=== PATIENT | female | born 1950 | race Caucasian/White ===

== ENCOUNTER → 2016-06-25 | Outpatient (CLI) | payer MEDICARE, OTHER ==
[~2016-06-25] MED LIST: ANGELIQ PO; ASPIRIN 81M81 MG/TA2 PO; CALCIUM WITH D31 CTB PO; CARDI-OMEGA1000 MG PO; HYZAAR 25 MG-101 TAB PO; LIPITOR20 MG PO; MULTIPLE VITAMI1 CAP PO; PRILOTC PO
== END ==
LOC: MC.RAD 13:40
DX: Z12.31 Encounter for screening mammogram for malignant neoplasm of breast (principal); N63 Unspecified lump in breast

== ENCOUNTER → 2017-06-28 | Outpatient (CLI) | payer MEDICARE, OTHER | LOC: MC.RAD 09:50 | DX: Z12.31 Encounter for screening mammogram for malignant neoplasm of breast (principal) ==

== ENCOUNTER → 2018-02-24 | Outpatient (CLI) | payer MEDICARE, OTHER | LOC: MC.RAD 09:45 | DX: N63.11 Unspecified lump in the right breast, upper outer quadrant (principal) | CPT/HCPCS: G0279 ==

== ENCOUNTER → 2018-02-28 | Outpatient (CLI) | payer MEDICARE, OTHER | LOC: MC.RAD 10:00 | DX: N63.10 Unspecified lump in the right breast, unspecified quadrant (principal); Z98.82 Breast implant status ==

== ENCOUNTER → 2018-03-21 | Outpatient (CLI) | payer MEDICARE, OTHER ==
[~2018-03-21] MED LIST changes: +AMITRIPTYLINE H50 M1 PO; +HCTZ 25MG TAB25 MG PO; +LIPITOR 40MG TA40 MG PO; +NATURAL IRON65 MG PO; +NORCO 325 MG-51 TAB PO; +NORCO 325 MG-7.1 TAB PO; +OMEGA-3 1000 MG1 CAP PO; +PROTONIX 40MG T40 MG PO; +REGLAN 10MG10 MG/TAB PO; +TESSALON P100 MG/CAP PO; +TOPROL XL 50MG50 MG PO
== END ==
LOC: COL.RAD 09:03
DX: C50.611 Malignant neoplasm of axillary tail of right female breast (principal)
CPT/HCPCS: A9541

== ENCOUNTER 2018-03-22 08:12 | Day surgery (SDC) | payer MEDICARE, OTHER ==
[~2018-03-22] VITALS: Ht 167.6 cm; Wt 109.3 kg
[~2018-03-22 08:12] MED LIST changes: -AMITRIPTYLINE H50 M1 PO; -HCTZ 25MG TAB25 MG PO; -LIPITOR 40MG TA40 MG PO; -NATURAL IRON65 MG PO; -NORCO 325 MG-51 TAB PO; -NORCO 325 MG-7.1 TAB PO; -OMEGA-3 1000 MG1 CAP PO; -PROTONIX 40MG T40 MG PO; -REGLAN 10MG10 MG/TAB PO; -TESSALON P100 MG/CAP PO; -TOPROL XL 50MG50 MG PO
[2018-03-22] MEDS ORDERED: LIPITOR 40MG TA40 MG PO (09:53)
[2018-03-22] MEDS ORDERED: OMEGA-3 1000 MG1 CAP PO (09:54)
[2018-03-22] MEDS ORDERED: HCTZ 25MG TAB25 MG PO (09:55)
[2018-03-22] MEDS ORDERED: AMITRIPTYLINE H50 M1 PO (09:56)
[2018-03-22] MEDS ORDERED: PROTONIX 40MG T40 MG PO (09:56)
[2018-03-22] MEDS ORDERED: REGLAN 10MG10 MG/TAB PO (09:57)
[2018-03-22] MEDS ORDERED: NATURAL IRON65 MG PO (09:58)
[2018-03-22] MEDS ORDERED: TESSALON P100 MG/CAP PO (09:58)
[2018-03-22] MEDS ORDERED: TOPROL XL 50MG50 MG PO (09:59)
[2018-03-22 10:01] VITALS: BP 150/83; PULSE 86; TEMP 97.9
[2018-03-22] MEDS ORDERED: NORCO 325 MG-7.1 TAB PO (14:04)
[2018-03-22 14:30] VITALS: BP 138/83; PULSE 77; TEMP 97.3
[2018-03-22 14:45] VITALS: BP 140/68; PULSE 78
[2018-03-22 15:00] VITALS: BP 145/73; PULSE 77
[2018-03-22 15:15] VITALS: BP 139/73; PULSE 78
[2018-03-22 15:45] VITALS: BP 144/79; PULSE 79
== END 2018-03-22 16:05 | disposition home or self-care (01) ==
LOC: SDCO 08:12
DX: C50.911 Malignant neoplasm of unspecified site of right female breast (principal); C77.3 Secondary and unspecified malignant neoplasm of axilla and upper limb lymph nodes; Z17.0 Estrogen receptor positive status [ER+]; I10 Essential (primary) hypertension; E78.00 Pure hypercholesterolemia, unspecified; K21.9 Gastro-esophageal reflux disease without esophagitis; E66.09 Other obesity due to excess calories; Z68.37 Body mass index [BMI] 37.0-37.9, adult; Z88.2 Allergy status to sulfonamides; Z87.891 Personal history of nicotine dependence; Z85.828 Personal history of other malignant neoplasm of skin; Z80.3 Family history of malignant neoplasm of breast; Z80.49 Family history of malignant neoplasm of other genital organs; Z80.1 Family history of malignant neoplasm of trachea, bronchus and lung
CPT/HCPCS: A9541; J0690; J1100; J1885; J2250; J2405; J2704; J3010; J7120; Q9968

== ENCOUNTER 2018-05-17 07:33 | Day surgery (SDC) | payer MEDICARE, OTHER ==
[~2018-05-17] VITALS: Ht 167.6 cm; Wt 107.3 kg
[~2018-05-17 07:33] MED LIST changes: +AMITRIPTYLINE H50 M1 PO; +HCTZ 25MG TAB25 MG PO; +LIPITOR 40MG TA40 MG PO; +NATURAL IRON65 MG PO; +NORCO 325 MG-51 TAB PO; +NORCO 325 MG-7.1 TAB PO; +OMEGA-3 1000 MG1 CAP PO; +PROTONIX 40MG T40 MG PO; +REGLAN 10MG10 MG/TAB PO; +TESSALON P100 MG/CAP PO; +TOPROL XL 50MG50 MG PO
[2018-05-17 08:14] VITALS: BP 155/92; PULSE 93; TEMP 97.8
[2018-05-17 10:36] VITALS: BP 133/65; PULSE 75; TEMP 98.5
[2018-05-17 10:50] VITALS: BP 132/77; PULSE 73
[2018-05-17 11:05] VITALS: BP 127/60; PULSE 77
== END 2018-05-17 11:30 | disposition home or self-care (01) ==
LOC: SDCO 07:33
DX: C50.411 Malignant neoplasm of upper-outer quadrant of right female breast (principal); C77.3 Secondary and unspecified malignant neoplasm of axilla and upper limb lymph nodes; Z87.891 Personal history of nicotine dependence; Z80.3 Family history of malignant neoplasm of breast; Z88.2 Allergy status to sulfonamides; Z79.82 Long term (current) use of aspirin; Z79.899 Other long term (current) drug therapy
CPT/HCPCS: C1788; J0690; J1644; J2250; J2704; J3010; J7120

== ENCOUNTER 2018-11-07 12:53 | Day surgery (SDC) | payer MEDICARE, OTHER ==
[~2018-11-07] VITALS: Ht 167.6 cm; Wt 99.0 kg
[~2018-11-07 12:53] MED LIST changes: +MASON NATURAL1200 MG PO; -MULTIPLE VITAMI1 CAP PO; +MULTIPLE VITAMI1 TA5 PO; -OMEGA-3 1000 MG1 CAP PO
[2018-11-07] MEDS ORDERED: CARAFATE 1GM1 G PO (13:34)
[2018-11-07] MEDS ORDERED: ARIMIDEX1 MG PO (13:36)
[2018-11-07 13:46] VITALS: BP 130/86; PULSE 98; TEMP 97
[2018-11-07 14:50] VITALS: BP 118/74; PULSE 83; TEMP 97.5
--- NOTE | 2018-11-07 14:50 | NUR ---
Pt to GI bay 3 via cart from [employer]. Pt drowsy, but awake. Denies pain or nausea. Water and pudding given per pt request. in room. Call light within reach. Will continue to monitor. Call light within reach.
[2018-11-07 15:05] VITALS: BP 129/97; PULSE 84
--- NOTE | 2018-11-07 15:05 | NUR ---
Pt continues to rest. Tolerating food and fluids without difficulties. Will continue to monitor. Call light within reach.
[2018-11-07 15:20] VITALS: BP 126/72; PULSE 81
--- NOTE | 2018-11-07 15:20 | NUR ---
Pt continues to rest. Denies needs. Call light within reach.
[2018-11-07 15:35] VITALS: BP 120/74; PULSE 81
--- NOTE | 2018-11-07 15:35 | NUR ---
Discharge instructions reviewed. Pt voices understanding. IV site discontinued with all parts intact. Pt up to dress. Call light within reach.
--- NOTE | 2018-11-07 15:45 | NUR ---
Pt escorted to private car via wheel chair. Pt accompanied home by her .
== END 2018-11-07 15:45 | disposition home or self-care (01) ==
LOC: SDCO 12:53
DX: K21.9 Gastro-esophageal reflux disease without esophagitis (principal); D12.4 Benign neoplasm of descending colon; K29.30 Chronic superficial gastritis without bleeding; Z88.2 Allergy status to sulfonamides; Z83.71 Family history of colonic polyps; Z85.3 Personal history of malignant neoplasm of breast; Z92.21 Personal history of antineoplastic chemotherapy; E78.00 Pure hypercholesterolemia, unspecified; I10 Essential (primary) hypertension; R19.7 Diarrhea, unspecified; Z83.79 Family history of other diseases of the digestive system; Z92.3 Personal history of irradiation; K59.00 Constipation, unspecified
CPT/HCPCS: J2250; J3010; J7030

== ENCOUNTER 2018-11-09 15:05 | Inpatient (IN) | payer MEDICARE, OTHER ==
[~2018-11-09] VITALS: Ht 167.6 cm; Wt 100.8 kg
[~2018-11-09 15:05] MED LIST changes: +ARIMIDEX1 MG PO; +CARAFATE 1GM1 G PO
[2018-11-22] VITALS (10 sets, daily range): BP systolic 107–141; BP diastolic 46–77; PULSE 76–109; TEMP 97.2–98.2
[2018-11-22] MEDS ORDERED: TOPROL XL 50MG50 MG PO (08:56)
[2018-11-22] MEDS ORDERED: HCTZ 25MG TAB25 MG PO (08:57)
[2018-11-22] MEDS ORDERED: LIPITOR 40MG TA40 MG PO (08:59)
[2018-11-22] MEDS ORDERED: PROTONIX 40MG T40 MG PO (09:00)
[2018-11-22] MEDS ORDERED: AMITRIPTYLINE H25 M1 PO (09:00)
[2018-11-22] MEDS ORDERED: REGLAN 10MG10 MG/TAB PO (09:03)
[2018-11-22] MEDS ORDERED: TESSALON P100 MG/CAP PO (09:04)
[2018-11-22] MEDS ORDERED: MULTI VITAMINS1 TAB PO (09:05)
[2018-11-22] MEDS ORDERED: CALCIUM 600 PLU1 TAB PO (09:05)
[2018-11-22] MEDS ORDERED: MASON NATURAL1200 MG PO (09:07)
[2018-11-22] MEDS ORDERED: ASPIRIN 81M81 MG/TA2 PO (09:07)
[2018-11-22] MEDS ORDERED: IRON 27 MG PO (09:12)
[2018-11-22] MEDS ORDERED: CARAFATE 1GM1 G PO (09:12)
[2018-11-23 01:45] VITALS: BP 104/49; PULSE 90; TEMP 97.8
[2018-11-23 04:58] VITALS: BP 106/52; PULSE 93; TEMP 98.1
[2018-11-23 06:49] LABS: CALCIUM 9.5 mg/dL (8.4-10.2); CREATININE, serum 0.61 (0.52-1.25); POTASSIUM 3.7 mmol/L (3.4-5.0)
[2018-11-23 07:00] LABS: HEMATOCRIT 27.9 % (37.0-47.0); HEMOGLOBIN 8.5 g/dl (12.5-16.0)
[2018-11-23 07:42] VITALS: BP 109/40; PULSE 77; TEMP 97.7
[2018-11-23 12:31] VITALS: BP 90/48; PULSE 72; TEMP 97.7
[2018-11-23 17:17] VITALS: BP 135/52; PULSE 83; TEMP 98.2
[2018-11-23 17:25] LABS: HEMATOCRIT 25.8 % (37.0-47.0)
[2018-11-23 20:01] VITALS: BP 101/46; PULSE 84; TEMP 98.1
[2018-11-24 00:10] VITALS: BP 109/43; PULSE 91; TEMP 98.5
[2018-11-24 04:31] VITALS: BP 117/65; PULSE 88; TEMP 98.2
[2018-11-24 08:00] VITALS: BP 97/59; PULSE 95; TEMP 98.6
[2018-11-24 09:39] LABS: HEMATOCRIT 27.2 % (37.0-47.0); HEMOGLOBIN 8.5 g/dl (12.5-16.0)
== END 2018-11-24 11:50 | disposition home or self-care (01) | DRG 330 ==
LOC: INPTSU 11-22 07:28 → SURG 11-22 09:30
PROVIDERS: Obstetrics & Gynecology; ADMIT Surgery
PROC: 0DTL0ZZ Resection of Transverse Colon, Open Approach (ICD-10-PCS; principal; 2018-11-22 09:30)
PROC: 0UT00ZZ Resection of Right Ovary, Open Approach (ICD-10-PCS; 2018-11-22 09:30)
DX: C18.4 Malignant neoplasm of transverse colon (principal); C77.3 Secondary and unspecified malignant neoplasm of axilla and upper limb lymph nodes; C50.411 Malignant neoplasm of upper-outer quadrant of right female breast; E66.09 Other obesity due to excess calories; Z68.35 Body mass index [BMI] 35.0-35.9, adult; I10 Essential (primary) hypertension; Z88.2 Allergy status to sulfonamides; D27.0 Benign neoplasm of right ovary
CPT/HCPCS: A4314; J0690; J1100; J1650; J1885; J2405; J2704; J2710; J3010; J7120

== ENCOUNTER → 2019-03-22 | Outpatient (CLI) | payer MEDICARE, OTHER ==
[~2019-03-22] MED LIST changes: +AMITRIPTYLINE H25 M1 PO; +CALCIUM 600 PLU1 TAB PO; +IRON 27 MG PO; +MULTI VITAMINS1 TAB PO
== END ==
LOC: MC.RAD 12:58
DX: C50.411 Malignant neoplasm of upper-outer quadrant of right female breast (principal); Z98.890 Other specified postprocedural states; Z92.3 Personal history of irradiation
CPT/HCPCS: G0279

== ENCOUNTER → 2020-03-25 | Outpatient (CLI) | payer MEDICARE, OTHER | LOC: MC.RAD 10:24 | DX: Z12.31 Encounter for screening mammogram for malignant neoplasm of breast (principal); Z85.3 Personal history of malignant neoplasm of breast ==

== ENCOUNTER 2020-12-10 15:24 | Emergency (ER) | payer MEDICARE, OTHER ==
[~2020-12-10] VITALS: Ht 167.6 cm; Wt 105.9 kg
[2020-12-10] MEDS ORDERED: NORCO 325 MG-51 TAB PO (17:58)
[2020-12-10 18:30] VITALS: BP 117/74; PULSE 78; TEMP 97.8
== END 2020-12-10 18:30 | disposition home or self-care (01) ==
LOC: COL.ER 15:24
DX: S82.61XA Displaced fracture of lateral malleolus of right fibula, initial encounter for closed fracture (principal); S82.51XA Displaced fracture of medial malleolus of right tibia, initial encounter for closed fracture; W10.9XXA Fall (on) (from) unspecified stairs and steps, initial encounter; Y92.009 Unspecified place in unspecified non-institutional (private) residence as the place of occurrence of the external cause

== ENCOUNTER → 2021-06-25 | Outpatient (CLI) | payer MEDICARE, OTHER | LOC: MC.RAD 13:42 | DX: Z12.31 Encounter for screening mammogram for malignant neoplasm of breast (principal); Z80.3 Family history of malignant neoplasm of breast ==